=== PATIENT | female | born 1995 | race Caucasian/White ===

== ENCOUNTER → 2021-01-25 | Outpatient (CLI) | payer BC ==
--- NOTE | 2021-01-25 10:35 | USB ---
Reason for exam: clinical finding. History: Family history of breast cancer in maternal grandmother at age 60. Indicated problem(s): lump or thickening and pain in the right breast. Physical Findings: Nurse Summary: patient states doctor felt right breast lump x 2 weeks ago at 6 o'clock, moveable, tender, bilateral breasts dense nodular upper outer quadrant (nurse mj). US Breast RT Right complete breast ultrasound includes all four quadrants, the retroareolar region and axilla. Finding demonstrates a 0.6 x 0.5 x 0.3cm oval, lymph node at 4 o'clock, a 1.2 x 0.9 x 0.3cm oval cystic cluster at 6 o'clock, a 0.4 x 0.5 x 0.3cm oval, hypoechoic lymph node at 9 o'clock and duct ectasia at the posterior nipple. These results were verbally communicated with the patient and result sheet given to the patient on 01/25/21. ASSESSMENT: Benign, BI-RAD 2 RECOMMENDATION: Routine screening mammogram of both breasts at age 41. Manage patient on a clinical basis.
== END | disposition home or self-care (01) ==
LOC: RADUSWWP 09:27
PROVIDERS: ATTEND Obstetrics & Gynecology
DX: N60.01 Solitary cyst of right breast (principal); Z80.3 Family history of malignant neoplasm of breast

== ENCOUNTER 2022-09-04 07:04 | Inpatient (IN) | payer MEDICAID ==
[2022-09-05] MEDS ORDERED: BUTORPHANOL 2 MG/ML 1 ML VIAL IV PRN (19:15)
[2022-09-05] MEDS ORDERED: DINOPROSTONE 10 MG INSERT.ER VAGINAL ONE (19:30)
[2022-09-05] MEDS ORDERED: NALBUPHINE 10 MG/ML (10 ML MDV) IV PRN (21:11)
[2022-09-05] MEDS: LACTATED RINGERS 1,000 ML IV SCH ×2 (21:12→23:30)
--- NOTE | 2022-09-05 21:16 | P.HPOB ---
History of Present Illness H&P Date: 09/05/22 Chief Complaint: 40 and one sevenths weeks, Cervidil cervical ripening The patient is a 27-year-old 1 para 0 admitted at 40 and one sevenths weeks for Cervidil cervical ripening with a unfavorable cervix. Her dates were established by last menstrual period and confirmed by 8 week ultrasound. Her has been entirely uncomplicated and group B strep status is positive. On labor and delivery, all signs reassuring with a category 1 heart rate tracing. Obstetrical history: 1 para 0 with current statistics listed in history of present illness. EDC of 09/04/2022 was established by last menstrual period and confirmed by an 8 week ultrasound. Laboratory workup demonstrates a blood type of A+ with a negative antibody screen. Rubella status is immune. The remainder of the laboratory workup was within normal limits. Second trimester Glucola was normal and group B strep status is positive. Gynecologic history: Unremarkable with no history of any infections to include STDs. Review of Systems Review of systems is confined to history of present illness. Past Medical History Additional Past Medical History / Comment(s): ulcerative colitis History of Any Multi-Drug Resistant Organisms: None Reported Past Surgical History: Orthopedic Surgery Additional Past Surgical History / Comment(s): right shoulder. bilateral ear tubes Past Anesthesia/Blood Transfusion Reactions: No Reported Reaction Past Psychological History: No Psychological Hx Reported Smoking Status: Never smoker Past Alcohol Use History: None Reported Past Drug Use History: None Reported - Past Family History Father Family Medical History: No Reported History Medications and Allergies Home Medications Medication Instructions Recorded Confirmed Type Mesalamine [Lialda] 2 tab PO DAILY 09/05/22 09/05/22 History [place]-3/Dha/Epa/Fish Oil [Fish Oil 1 each PO DAILY 09/05/22 09/05/22 History 1,000 mg Softgel] Vit No.180/Iron/Folic 1 each PO DAILY 09/05/22 09/05/22 History [ Plus Tablet] Allergies Allergy/AdvReac Type Severity Reaction Status Date / Time No Known Allergies Allergy Verified 09/05/22 19:13 Exam Vital Signs Temp Pulse Resp BP Pulse Ox 09/05/22 19:37 98.3 F 71 14 126/79 98 Intake and Output 09/05/22 09/05/22 09/05/22 06:59 14:59 22:59 Other: Weight 79.832 kg In general, this is a well-developed, well-nourished white female in no acute distress. Her heart has a regular rhythm and rate without murmur. Her lungs are clear to auscultation bilaterally in all macdonald. Her abdomen is gravid, non distended, has normal active bowel sounds, soft, nontender, without any palpable masses aside from uterine fundus. Her extremities are without any cyanosis, clubbing, or significant edema and are nontender to palpation bilaterally. Digital cervical examination demonstrates her cervix to be fingertip, 50% effaced, the vertex in presentation at -2 station. Cervix is quite posterior. Cervidil is placed in the posterior fornix per protocol. Assessment and Plan (1) Post-dates Current Visit: Yes Status: Acute Code(s): O48.0 - POST-TERM SNOMED Code(s): 68831737 (2) Group B streptococcal carriage complicating Current Visit: Yes Status: Acute Code(s): O99.820 - STREPTOCOCCUS B CARRIER STATE COMPLICATING SNOMED Code(s): 026551391558648 Plan: The patient is admitted for Cervidil cervical ripening with intended induction of labor tomorrow morning with Pitocin beginning at 6 AM. Cervidil has been placed. Assuming labor does not begin, she can have intermittent monitoring overnight to be changed to continuous monitoring once in labor or induction begins. She is a good candidate for either IV or epidural analgesia, whichever she may choose. She will have close maternal and surveillance and expectant management will be practiced. The risks and complications of Cervidil cervical ripening have been explained at length assess induction of labor.
[2022-09-05 21:23] LABS: Basophils % (A) 1 %; Eosinophils # (A) 0.1 k/uL (0-0.7); Eosinophils % (A) 1 %; HCT 41.4 % (34.0-46.0); HGB 13.9 gm/dL (11.4-16.0); Lymphocytes # (A) 1.7 k/uL (1.0-4.8); Lymphocytes % (A) 19 %; MCH 32.1 pg (25.0-35.0); MCHC 33.6 g/dL (31.0-37.0); MCV 95.3 fL (80.0-100.0); Mean Platelet Volume 9.1; Monocytes # (A) 1.2 k/uL (0-1.0); Monocytes % (A) 13 %; Neutrophils # (A) 5.6 k/uL (1.3-7.7); Neutrophils % (A) 64 %; Platelet Count 217 k/uL (150-450); RBC 4.34 m/uL (3.80-5.40); RDW 12.9 % (11.5-15.5); WBC 8.7 k/uL (3.8-10.6)
[2022-09-06] MEDS ORDERED: TERBUTALINE 1 MG/ML VIAL SQ PRN (01:37)
[2022-09-06] MEDS ORDERED: TRANEXAMIC 1,000 MG/100ML-NACL 1,000 MG in EMPTY BAG 1 BAG IV PRN (01:37)
[2022-09-06] MEDS ORDERED: LIDOCAINE 0.5% (PF) 5 MG/ML (50 ML SDV) SQ PRN (01:37)
[2022-09-06] MEDS ORDERED: METHYLERGONOVINE 0.2 MG/ML 1 ML AMP IM PRN (01:37)
[2022-09-06] MEDS ORDERED: miSOPROStoL 200 MCG TAB PO PRN (01:37)
[2022-09-06] MEDS ORDERED: CARBOPROST TROMETHAMINE 250 MCG/ML 1 ML AMP IM PRN (01:37)
[2022-09-06] MEDS ORDERED: OXYTOCIN 10 UNIT/ML 1 ML VIAL IM PRN (01:37)
[2022-09-06] MEDS ORDERED: OXYTOCIN 30 UNITS/500 ML NS 30 UNIT in SALINE 1 500ML.BAG IV SCH ×2 (01:45→14:45)
[2022-09-06] MEDS ORDERED: PENICILLIN G POTASSIUM 5,000,000 UNIT in DEXTROSE 5% IN WATER 100 ML IVPB ONE ×2 (02:00)
[2022-09-06] MEDS: LACTATED RINGERS 1,000 ML IV SCH ×3 (02:06→21:21)
[2022-09-06] MEDS ORDERED: ROPIVACAINE 5 MG/ML 20 ML AMPULE ONE (03:49)
[2022-09-06] MEDS ORDERED: fentaNYL (PF) 50 MCG/ML 5 ML AMP ONE (03:49)
[2022-09-06] MEDS ORDERED: SODIUM CHLORIDE 0.9% 100 ML BAG ONE (03:49)
[2022-09-06] MEDS: PENICILLIN G POTASSIUM 2,500,000 UNIT in DEXTROSE 5% IN WATER 100 ML IVPB SCH ×6 (07:55→14:51)
[2022-09-06] MEDS ORDERED: BENZOCAINE/MENTHOL SPRAY 1 GM/SPRAY AEROSOL TOPICAL PRN (14:36)
[2022-09-06] MEDS ORDERED: diphenhydrAMINE 50 MG CAP PO PRN (14:36)
[2022-09-06] MEDS ORDERED: diphenhydrAMINE 50 MG/ML 1 ML VIAL IVP PRN ×2 (14:36)
[2022-09-06] MEDS ORDERED: HYDROcodone/APAP 5-325MG 1 EACH TAB PO PRN (14:36)
[2022-09-06] MEDS ORDERED: ZOLPIDEM 5 MG TAB PO PRN (14:36)
[2022-09-06] MEDS ORDERED: diphenhydrAMINE 25 MG CAP PO PRN (14:36)
[2022-09-06] MEDS ORDERED: HYDROCORTISONE 2.5% RECTAL CREAM 30 GM TUBE RECTAL PRN (14:36)
[2022-09-06] MEDS ORDERED: SIMETHICONE 80 MG CHEWABLE PO PRN (14:36)
[2022-09-06] MEDS ORDERED: ACETAMINOPHEN TAB 325 MG TAB PO PRN (14:36)
[2022-09-06] MEDS ORDERED: LANOLIN CREAM 5 GM TUBE TOPICAL PRN (14:36)
[2022-09-06] MEDS ORDERED: HYDROcodone/APAP 7.5-325MG 1 EACH TAB PO PRN (14:36)
--- NOTE | 2022-09-06 14:41 | P.PROBDLV ---
Vaginal Delivery Note - . Vaginal Delivery Note: The patient is a 27-year-old 1 para 0 admitted at 40 and one sevenths weeks for Cervidil cervical ripening. Her was entirely uncomplicated though group B strep status was positive. On labor and delivery, all signs were reassuring with a category 1 heart rate tracing. She had Cervidil placed last evening per protocol and actually went into active labor with a nearly tachysystolic contraction pattern beginning in the middle of the night. She had an epidural catheter placed for analgesia. This morning, again all signs reassuring with a category 1 heart rate tracing. Cervix was found to be 2+ centimeters dilated and artificial rupture of membranes was carried out demonstrating clear fluid. She then progressed through the latent and active phase of labor ultimately to complete and pushed over the course of approximately 30-40 minutes to a normal spontaneous vaginal delivery of a viable 7 lbs. 9 oz. baby boy with Apgars of 8 at 1 minute and 9 at 5 minutes delivered in the right occiput anterior position. There was a loose nuchal cord 1 which was reduced following delivery of the . The placenta was delivered spontaneously, intact, and grossly normal with a grossly normal slightly eccentrically-inserted three-vessel cord. There was a second-degree midline perineal laceration was fairly small and repaired in standard fashion using 3-0 chromic catgut without difficulty. She did have a large roughly 1 x 2 cm skin tag located in the left vulvar region at the fold between her labia majora and thigh which had a relatively narrow base. After discussion with the patient, it was grasped with the forceps and elevated and then removed at its base with the scissors and sent for pathological diagnoses. The base was gaping slightly and was closed with 2 interrupted subcuticular stitches of 3-0 chromic catgut. Estimated blood loss for the entire case was approximate 150 mL. There were no complications. All sponge, instrument, needle counts were correct. Both mother and are resting comfortably in recovery.
[2022-09-06] MEDS: IBUPROFEN 600 MG TAB PO PRN (18:32)
[2022-09-06] MEDS: SENNOSIDES-DOCUSATE SODIUM 1 EACH TAB PO SCH (21:20)
[2022-09-07 01:02] VITALS: BP 125/79
[2022-09-07] MEDS: IBUPROFEN 600 MG TAB PO PRN ×2 (06:20→14:26)
[2022-09-07 07:19] LABS: HCT 39.2 % (34.0-46.0); MCH 31.3 pg (25.0-35.0); MCHC 33.1 g/dL (31.0-37.0); MCV 94.5 fL (80.0-100.0); Mean Platelet Volume 8.7; Platelet Count 163 k/uL (150-450); RBC 4.14 m/uL (3.80-5.40); RDW 13.1 % (11.5-15.5); WBC 9.6 k/uL (3.8-10.6)
--- NOTE | 2022-09-07 08:41 | P.DS ---
Providers Date of admission: 09/05/22 19:00 Expected date of discharge: 09/07/22 Attending physician: Jun Palmer Primary care physician: Stated None - Discharge Diagnosis(es) (1) Post-dates Current Visit: Yes Status: Acute (2) Group B streptococcal carriage complicating Current Visit: Yes Status: Acute (3) Normal spontaneous vaginal delivery Current Visit: Yes Status: Acute Hospital Course: Patient is a 27-year-old 1 para 0 initially admitted at 40 and one sevenths weeks with an unfavorable cervix for Cervidil cervical ripening. Her was uncomplicated though she is group B strep positive. She had Cervidil placed and actually had labor begin through the night of. Cervidil fell out on its own. She had Pitocin augmentation started in the morning and underwent artificial rupture of membranes for clear fluid. An epidural catheter had been placed on the onset of labor and antibody prophylaxis started for group B strep prophylaxis as well. She made progress through the latent and active phase of labor to complete and then pushed to a normal spontaneous vaginal delivery of a viable 7 lbs. 9 oz. baby boy with Apgars of 8 at 1 minute and 9 at 5 minutes. Her course was unremarkable vital signs remained stable and her temperature was afebrile throughout. She was deemed stable for discharge on day #1 was discharged home to follow-up in the office in 6 weeks' time routinely. Discharge instructions included calling for any significantly increased bleeding or foul-smelling lochia, significantly increased fever or abdominal pain, perineal complaints, breast complaints, or anything else that concerned her. She was additionally instructed to have nothing in the vagina for at least 6 weeks time to include intercourse. She understood her instructions and agrees to follow up as noted above. Discharge medications included continued vitamins as she has opted to breast- feed. She was otherwise to use [id number] analgesic pain medications. Maternal blood type is A+ and rubella status is immune. Procedures: #1. Cervidil cervical ripening #2. Antibiotic prophylaxis #3. Epidural analgesia #4. Pitocin augmentation #5. Artificial rupture of membranes #6. Normal spontaneous vaginal delivery #7. Repair of perineal laceration Patient Condition at Discharge: Stable Plan - Discharge Summary New Discharge Prescriptions: No Action Vit No.180/Iron/Folic [ Plus Tablet] 1 each PO DAILY Mesalamine [Lialda] 2 tab PO DAILY [place]-3/Dha/Epa/Fish Oil [Fish Oil 1,000 mg Softgel] 1 each PO DAILY Discharge Medication List Mesalamine [Lialda] 2 tab PO DAILY 09/05/22 [History] [place]-3/Dha/Epa/Fish Oil [Fish Oil 1,000 mg Softgel] 1 each PO DAILY 09/05/22 [History] Vit No.180/Iron/Folic [ Plus Tablet] 1 each PO DAILY 09/05/22 [History] Follow up Appointment(s)/Referral(s): Jun Palmer MD [STAFF PHYSICIAN] - 6 Weeks Discharge Disposition: HOME SELF-CARE
[2022-09-07 08:56] VITALS: PULSE 110; RESP 30; TEMP 98.8
[2022-09-07] MEDS: SENNOSIDES-DOCUSATE SODIUM 1 EACH TAB PO SCH (09:06)
[2022-09-07 09:49] LABS: Eosinophils # (M) 0.19 k/uL (0-0.7); Lymphocytes # (M) 1.54 k/uL (1.0-4.8); Monocytes # (M) 0.19 k/uL (0-1.0); Neutrophils # (M) 7.68 k/uL (1.3-7.7); Neutrophils % (M) 80 %; Nucleated Red Blood Cells 0 /100 WBC (0-0); Total Cells Counted 100
[2022-09-07 09:50] LABS: RBC Morphology Normal
== END 2022-09-07 14:45 | disposition home or self-care (01) | DRG 806 ==
LOC: 4FBP 09-05 19:00
PROVIDERS: ADMIT Obstetrics & Gynecology; ATTEND Obstetrics & Gynecology
PROC: 10E0XZZ Delivery of Products of Conception, External Approach (ICD-10-PCS; principal; 2022-09-06)
PROC: 0KQM0ZZ Repair Perineum Muscle, Open Approach (ICD-10-PCS; 2022-09-06)
PROC: 3E0P7VZ Introduction of Hormone into Female Reproductive, Via Natural or Artificial Opening (ICD-10-PCS; 2022-09-06)
PROC: 10907ZC Drainage of Amniotic Fluid, Therapeutic from Products of Conception, Via Natural or Artificial Opening (ICD-10-PCS; 2022-09-06)
PROC: 3E033VJ Introduction of Other Hormone into Peripheral Vein, Percutaneous Approach (ICD-10-PCS; 2022-09-06)
DX: O99.824 Streptococcus B carrier state complicating childbirth (principal); K51.90 Ulcerative colitis, unspecified, without complications; Z37.0 Single live birth; O70.1 Second degree perineal laceration during delivery; O69.81X0 Labor and delivery complicated by cord around neck, without compression, not applicable or unspecified; O48.0 Post-term pregnancy; O99.62 Diseases of the digestive system complicating childbirth; Z3A.40 40 weeks gestation of pregnancy
CPT/HCPCS: 85025; 86850; 86900; 86901

== ENCOUNTER 2024-08-08 12:18 | Inpatient (IN) | payer MEDICAID ==
[2024-08-08] MEDS ORDERED: METHYLERGONOVINE 0.2 MG/ML 1 ML AMP IM PRN (14:43)
[2024-08-08] MEDS ORDERED: TERBUTALINE 1 MG/ML VIAL SQ PRN (14:43)
[2024-08-08] MEDS ORDERED: OXYTOCIN 10 UNIT/ML 1 ML VIAL IM PRN (14:43)
[2024-08-08] MEDS ORDERED: miSOPROStoL 200 MCG TAB RECTAL PRN (14:43)
[2024-08-08] MEDS ORDERED: TRANEXAMIC 1,000 MG/100ML-NACL 1,000 MG in EMPTY BAG 1 BAG IV PRN (14:43)
[2024-08-08] MEDS ORDERED: CARBOPROST TROMETHAMINE 250 MCG/ML 1 ML AMP IM PRN (14:43)
[2024-08-08] MEDS ORDERED: miSOPROStoL 200 MCG TAB PO PRN (14:43)
[2024-08-08] MEDS ORDERED: LIDOCAINE 0.5% (PF) 5 MG/ML (50 ML SDV) SQ PRN (14:43)
[2024-08-08] MEDS ORDERED: OXYTOCIN 30 UNITS/500 ML NS 30 UNIT in SALINE 1 500ML.BAG IV SCH (14:45)
[2024-08-08] MEDS: PENICILLIN G POTASSIUM 5,000,000 UNIT in SODIUM CHLORIDE 0.9% 100 ML IVPB STA (15:00)
[2024-08-08 15:02] LABS: Basophils # (A) 0.04 10*3/uL (0.00-0.10); Basophils % (A) 0.4 %; Eosinophils # (A) 0.01 10*3/uL (0.04-0.35); Eosinophils % (A) 0.1 %; HCT 41.1 % (37.2-46.3); HGB 14.2 g/dL (12.0-15.0); Lymphocytes # (A) 1.56 10*3/uL (0.90-5.00); Lymphocytes % (A) 15.6 %; MCH 32.1 pg (27.0-32.0); MCHC 34.5 g/dL (32.0-37.0); MCV 92.8 fL (80.0-97.0); Mean Platelet Volume 9.9 fL (9.5-12.2); Neutrophils % (A) 76.1 %; Platelet Count 209 10*3/uL (140-440); RBC 4.43 10*6/uL (4.10-5.20); RDW 12.5 % (11.5-14.5); WBC 9.99 10*3/uL (4.50-10.00)
--- NOTE | 2024-08-08 15:20 | P.HPOB ---
History of Present Illness H&P Date: 08/08/24 Patient is a 29-year-old female at 393/7 weeks presenting for contractions for 24 hours, she was 3 cm in office earlier today. JORDAN 08/12/2024 by LMP confirmed by first trimester ultrasound. She has received routine care. has been complicated by GBS. She reports good movement. Denies fever/chills, headache, visual changes, chest pain, dyspnea, vaginal bleeding, leakage of fluid. Pertinent labs: Blood type A+, antibody screen negative, GBS positive, rubella immune, RPR nonreactive, HepBsAg negative, Hep C nonreactive, HIV negative, gonorrhea negative, chlamydia negative, 1-hour GTT WNL Review of Systems ROS reviewed. Pertinent positives and negatives discussed above, a complete review of systems was performed and all the other systems were negative. Past Medical History Additional Past Medical History / Comment(s): ulcerative colitis History of Any Multi-Drug Resistant Organisms: None Reported Past Surgical History: Orthopedic Surgery Additional Past Surgical History / Comment(s): right shoulder. bilateral ear tubes Past Anesthesia/Blood Transfusion Reactions: No Reported Reaction Smoking Status: Never smoker - Past Family History Father Family Medical History: No Reported History Medications and Allergies Home Medications Medication Instructions Recorded Confirmed Type Mesalamine [Lialda] 2 tab PO DAILY 09/05/22 08/08/24 History [place]-3/Dha/Epa/Fish Oil [Fish Oil 1 each PO DAILY 09/05/22 08/08/24 History 1,000 mg Softgel] Vit No.180/Iron/Folic 1 each PO DAILY 09/05/22 08/08/24 History [ Plus Tablet] Allergies Allergy/AdvReac Type Severity Reaction Status Date / Time No Known Allergies Allergy Verified 08/08/24 12:41 Exam Vital Signs Temp Pulse Resp BP 08/08/24 12:40 98.2 F 71 16 123/81 Intake and Output 08/07/24 08/08/24 08/08/24 22:59 06:59 14:59 Other: Weight 71.668 kg Vital signs are stable. General: No acute distress. Alert and oriented. Lungs: Nonlabored breathing. Abdomen: Gravid and appropriate for gestational age. Cervical exam: 5/70/-2 per attending, AROM , clear fluid. Extremities: Symmetric movement. Category 1 heart tones. Assessment and Plan Assessment: Patient is a 29-year-old female at 393/7 weeks admitted for augmentation of labor. (1) Term Current Visit: Yes Status: Acute Code(s): Z34.90 - ENCNTR FOR SUPRVSN OF NORMAL , UNSP, UNSP TRIMESTER SNOMED Code(s): 32468138 (2) Group B streptococcal infection in Current Visit: Yes Status: Acute Code(s): O98.819 - OTH MATERNAL INFEC/PARASTC DISEASES COMP PREG, UNSP TRI; B95.1 - STREPTOCOCCUS, GROUP B, CAUSING DISEASES CLASSD ELSWHR SNOMED Code(s): 106820643 Plan: - Admit to [facility] - Proceed with augmentation of labor today - Pitocin per protocol - Penicillin G for GBS per protocol - Continuous EFM and tocometer - Anticipate spontaneous vaginal delivery
[2024-08-08] MEDS: LACTATED RINGERS 1,000 ML IV SCH (15:23)
[2024-08-08] MEDS ORDERED: fentaNYL (PF) 50 MCG/ML 5 ML AMP ONE (16:10)
[2024-08-08] MEDS ORDERED: SODIUM CHLORIDE 0.9% 250 ML BAG ONE (16:10)
[2024-08-08] MEDS ORDERED: ROPIVACAINE 5 MG/ML 30 ML VIAL ONE (16:10)
[2024-08-08] MEDS: OXYTOCIN 30 UNITS/500 ML NS 30 UNIT in SALINE 1 500ML.BAG IV SCH (17:56)
--- NOTE | 2024-08-08 18:14 | P.PROBDLV ---
Vaginal Delivery Note - . Vaginal Delivery Note: The patient is a 29-year-old 2 para 1-0-0-1 admitted at 39-3/7 weeks as established by good dating parameters. She is admitted in active labor with all signs reassuring, category 1 heart rate tracing. Her has been entirely uncomplicated and group B strep status is positive. On labor delivery, she had antibiotic prophylaxis started and underwent artificial rupture of membranes for clear fluid. She had an epidural catheter placed for analgesia. She made fairly quick progress through the active phase of labor to complete and then pushed over the course of 1 contraction to a normal spontaneous vaginal delivery of a viable 6 pound 11 ounce baby boy with Apgars of 9 at 1 minute and 10 at 5 minutes delivered in the right occiput anterior position. The placenta was delivered spontaneously, intact, and grossly normal with a grossly normal three-vessel cord inserted approximately 2 to 3 cm from the margin of the placental disc. There were no lacerations of the perineum, vagina, or cervix. Estimated blood loss for the case was approximately 50 mL. There were no complications. All sponge, instrument, and needle counts were correct. Both mother and infant are resting comfortably in recovery.
[2024-08-08] MEDS ORDERED: PENICILLIN G POTASSIUM 2,500,000 UNIT in SODIUM CHLORIDE 0.9% 100 ML IVPB SCH (20:00)
[2024-08-08 20:33] VITALS: RESP 16
[2024-08-09] MEDS ORDERED: BENZOCAINE/MENTHOL SPRAY 1 GM/SPRAY AEROSOL TOPICAL PRN (02:50)
[2024-08-09] MEDS ORDERED: diphenhydrAMINE 25 MG CAP PO PRN (02:50)
[2024-08-09] MEDS ORDERED: HYDROCORTISONE 2.5% RECTAL CREAM 30 GM TUBE RECTAL PRN (02:50)
[2024-08-09] MEDS ORDERED: diphenhydrAMINE 50 MG/ML 1 ML VIAL IVP PRN ×2 (02:50)
[2024-08-09] MEDS ORDERED: LANOLIN CREAM 1 GM TUBE TOPICAL PRN (02:50)
[2024-08-09] MEDS ORDERED: diphenhydrAMINE 50 MG CAP PO PRN (02:50)
[2024-08-09] MEDS ORDERED: ZOLPIDEM 5 MG TAB PO PRN (02:50)
[2024-08-09] MEDS ORDERED: SIMETHICONE 80 MG CHEWABLE PO PRN (02:50)
[2024-08-09] MEDS: IBUPROFEN 800 MG TAB PO SCH (03:11)
[2024-08-09] MEDS: SENNOSIDES-DOCUSATE SODIUM 1 EACH TAB PO SCH (07:42)
[2024-08-09] MEDS: ACETAMINOPHEN TAB 500 MG TAB PO SCH (09:13)
--- NOTE | 2024-08-09 10:54 | P.DS ---
Providers Date of admission: 08/08/24 13:56 Expected date of discharge: 08/09/24 Attending physician: Jun Palmer Primary care physician: Stated None - Discharge Diagnosis(es) (1) Normal spontaneous vaginal delivery Current Visit: Yes Status: Acute Hospital Course: The patient is a 29-year-old 2 para 1-0-0-1 admitted at 39-3/7 weeks in active labor with all signs reassuring, category 1 heart rate tracing. Her has been uncomplicated and group B strep status is positive. As a result, she had antibiotic. She underwent artificial rupture of membranes for clear fluid and shortly thereafter had an epidural catheter placed for analgesia. Progressed fairly quickly through the active phase of labor to complete over 1 contraction to a normal spontaneous vaginal delivery of a viable 6 pound 11 ounce baby boy with Apgars of 9 at 1 minute and 5 minutes. Her course was unremarkable with vital signs remaining stable and her temperature was afebrile throughout. She was deemed stable for discharge on day #1 and was discharged home to follow-up in the office in 6 weeks time routinely. Discharge instructions included calling for any significantly increased bleeding or foul-smelling lochia, significantly increased fever or abdominal pain, perineal or breast complaints, or anything else that concerned her. She was additionally instructed to have nothing in the vagina to include intercourse for at least 6 weeks time. She understood her instructions and agrees to follow-up as noted above. Discharge medications included continued vitamins as she has opted to breast-feed. She was otherwise to use [id number] analgesic pain medication maternal blood type is a positive and rubella status is immune. Procedures: #1. Antibiotic prophylaxis #2. Artificial rupture of membranes #3. Normal vaginal delivery Patient Condition at Discharge: Stable Plan - Discharge Summary New Discharge Prescriptions: No Action Vit No.180/Iron/Folic [ Plus Tablet] 1 each PO DAILY Mesalamine [Lialda] 2 tab PO DAILY [place]-3/Dha/Epa/Fish Oil [Fish Oil 1,000 mg Softgel] 1 each PO DAILY Discharge Medication List Mesalamine [Lialda] 2 tab PO DAILY 09/05/22 [History] [place]-3/Dha/Epa/Fish Oil [Fish Oil 1,000 mg Softgel] 1 each PO DAILY 09/05/22 [History] Vit No.180/Iron/Folic [ Plus Tablet] 1 each PO DAILY 09/05/22 [History] Follow up Appointment(s)/Referral(s): Jun Palmer MD [STAFF PHYSICIAN] - 6 Weeks Discharge Disposition: HOME SELF-CARE
[2024-08-09 16:12] VITALS: BP 107/70; PULSE 64; TEMP 97.4
== END 2024-08-09 18:30 | disposition home or self-care (01) | DRG 806 ==
LOC: FBPOP 12:18 → 4FBP 13:56
PROVIDERS: ADMIT Obstetrics & Gynecology; ATTEND Obstetrics & Gynecology
PROC: 10E0XZZ Delivery of Products of Conception, External Approach (ICD-10-PCS; principal; 2024-08-08)
DX: O98.82 Other maternal infectious and parasitic diseases complicating childbirth (principal); K51.90 Ulcerative colitis, unspecified, without complications; Z37.0 Single live birth; B95.1 Streptococcus, group B, as the cause of diseases classified elsewhere; O99.62 Diseases of the digestive system complicating childbirth; O99.824 Streptococcus B carrier state complicating childbirth; Z3A.39 39 weeks gestation of pregnancy
CPT/HCPCS: 59025; 85025; 86850; 86900; 86901; 99213